=== PATIENT | female | born 1940 | race Two or more races ===

== ENCOUNTER 2019-03-17 18:09 | Emergency (ER) | payer MEDICARE, OTHER ==
[~2019-03-17] VITALS: Ht 165.1 cm; Wt 74.8 kg
--- NOTE | 2019-03-17 18:23 | NUR ---
PT CAME INTO THE ED C/O R SIDED BODY PAIN. HEMATOMA NOTED ON R EYELID. PT COULD NOTE RECALL HOW SHE FELL. PT ALERT AND AWAKE, NO ACUTE DISTRESS NOTED. PT CONNECTED TO THE MONITOR AND POX
[2019-03-17] MEDS ORDERED: MORPHINE SULFATE INJ 2 MG/ML DISP.SYRIN IV ONE (18:30)
[2019-03-17] MEDS ORDERED: ONDANSETRON HCL/PF - ER 4 MG/2 ML VIAL IV ONE (18:30)
[2019-03-17] MEDS ORDERED: MORPHINE SULFATE INJ 2 MG/ML DISP.SYRIN ONE (18:35)
[2019-03-17] MEDS ORDERED: ONDANSETRON HCL/PF 4 MG/2 ML VIAL ONE ×2 (18:35→23:40)
[2019-03-17 18:51] LABS: BASOPHILS # (AUTO) 0.1 /CMM (0.0-0.2); BASOPHILS % (AUTO) 0.3 % (0.0-2.0); EOSINOPHILS % (AUTO) 0.1 % (0.0-6.0); HEMATOCRIT 37 % (33-45); HEMOGLOBIN 12.3 g/dL (11.5-14.8); LYMPHOCYTES # (AUTO) 1.6 /CMM (0.8-4.8); LYMPHOCYTES % (AUTO) 9.1 % (20.0-44.0); MEAN CORPUSCULAR HGB CONC 33 g/dl (31.0-36.0); MEAN CORPUSCULAR VOLUME 94 fL (82-100); MONOCYTES # (AUTO) 0.7 /CMM (0.1-1.30); MONOCYTES % (AUTO) 4.4 % (2.0-12.0); NEUTROPHILS # (AUTO) 14.8 /CMM (1.8-8.9); NEUTROPHILS % (AUTO) 86.1 % (43.0-81.0); PLATELET COUNT (AUTO) 169 /CMM (150-450); RED BLOOD CELL COUNT(AUTO) 3.89 MIL/uL (4.0-5.2); WHITE BLOOD COUNT (AUTO) 17.2 K/uL (4.3-11.0)
--- NOTE | 2019-03-17 19:00 | NUR ---
PT TAKEN TO CT
[2019-03-17 19:01] LABS: CALCIUM, SERUM 8.9 mg/dL (8.5-10.1); CREATININE 0.9 mg/dL (0.6-1.3); POTASSIUM 3.2 mmol/L (3.5-5.1)
--- NOTE | 2019-03-17 19:25 | NUR ---
PT BACK FROM CT
[2019-03-17 20:00] VITALS: BP 166/72
[2019-03-17] MEDS ORDERED: IV NS 0.9% 500 ML BAG IV ONE (20:00)
[2019-03-17] MEDS ORDERED: TDAP [DIPH/PERTUSSIS/TET] 0.5 ML VIAL IM ONE ×2 (20:00→20:08)
[2019-03-17] MEDS ORDERED: POTASSIUM CHLORIDE 20 MEQ TAB.PRT.SR PO ONE ×2 (20:00→20:07)
--- NOTE | 2019-03-17 20:56 | NUR ---
PT BEING TRANSFERRED TO [facility]. AWAITING BED ASSIGNMENT
--- NOTE | 2019-03-17 22:27 | NUR ---
CALLED [facility] FOR IMAGE TO BE READ
--- NOTE | 2019-03-17 22:29 | NUR ---
URINE COLLECTED AND SENT TO LAB
[2019-03-17 22:33] LABS: APPEARANCE,URINE Clear (CLEAR); BILIRUBIN,URINE Negative (NEGATIVE); BLOOD, URINE Negative Ery/uL (NEGATIVE); COLOR,URINE Yellow (YELLOW); KETONES,URINE 15 (NEGATIVE); LEUKOCYTE ESTERASE ,URINE Negative (NEGATIVE); NITRITE, URINE Negative (NEGATIVE); PH,URINE 6.5 (5.0-8.0); PROTEIN,URINE Negative (NEGATIVE); UGLUCOSE Negative (NEGATIVE); UROBILINOGEN,URINE 0.2 EU/dL (0.2)
[2019-03-17 22:46] LABS: BACTERIA,URINE Rare /HPF (None Seen); RBC,URINE NONE SEEN /HPF (0-2); SQUAMOUS EPITHELIAL CELL,UR Few /HPF (None Seen); WBC,URINE NONE SEEN /HPF (0-3)
--- NOTE | 2019-03-17 23:02 | NUR ---
[facility] CALL REPORT [phone]
--- NOTE | 2019-03-17 23:10 | NUR ---
CALLED DR LORENZO FOR A DR TO SPEAKING ON PHONE NOW
--- NOTE | 2019-03-17 23:11 | NUR ---
CM WILL SET UP TRANSFER AND WILL CALL BACK WITH ETA
--- NOTE | 2019-03-17 23:19 | NUR ---
TRANSPORT ETA 30 MIN PER [facility]OR[facility].
[2019-03-17] MEDS ORDERED: MORPHINE SULFATE INJ 4 MG/ML DISP.SYRIN ONE (23:40)
[2019-03-18] MEDS ORDERED: ONDANSETRON HCL/PF - ER 4 MG/2 ML VIAL IV ONE
[2019-03-18] MEDS ORDERED: MORPHINE SULFATE INJ 10 MG/ML DISP.SYRIN IV ONE
--- NOTE | 2019-03-18 00:12 | NUR ---
REPORT GIVEN [facility]
--- NOTE | 2019-03-18 00:13 | NUR ---
REPORT GIVEN TO EMS, PT STABLE FOR TRANSFER
== END 2019-03-18 00:14 | disposition short-term general hospital (02) ==
LOC: ER 18:10
DX: S32.89XA Fracture of other parts of pelvis, initial encounter for closed fracture (principal); S32.19XA Other fracture of sacrum, initial encounter for closed fracture; S52.571A Other intraarticular fracture of lower end of right radius, initial encounter for closed fracture; S05.11XA Contusion of eyeball and orbital tissues, right eye, initial encounter; R55 Syncope and collapse; E87.6 Hypokalemia; E86.0 Dehydration; I10 Essential (primary) hypertension; Z88.0 Allergy status to penicillin; W01.0XXA Fall on same level from slipping, tripping and stumbling without subsequent striking against object, initial encounter; Y93.89 Activity, other specified; Y92.89 Other specified places as the place of occurrence of the external cause; Y99.8 Other external cause status
CPT/HCPCS: 36415; 70450; 70486; 71045; 72125; 73110; 73700; 80048; 81001; 82962; 84484; 85025; 85730; 87081; 90471; 90715; 93005; 96361; 96374; 96375; 96376; 99285; J2270 ×2; J2405 ×2; J7040; 81000-TC